=== PATIENT | female | born 1940 | race Caucasian/White ===

== ENCOUNTER 2017-04-28 08:36 | Day surgery (SDC) | payer OTHER ==
[2017-04-27 13:06] VITALS: BMI 21.9
[2017-04-28] MEDS ORDERED: ISOSULFAN BLUE 10 MG/ML VIAL SQ ONE (10:21)
[2017-04-28] MEDS ORDERED: LIDOCAINE HCL 1%, 10 MG/ML (20ML VIAL) ONE (10:30)
[2017-04-28] MEDS ORDERED: LIDOCAINE HCL/PF 2% SDV 5ML VIAL ONE (10:44)
[2017-04-28] MEDS ORDERED: DEXAMETHASONE SOD PHOSPHATE 4 MG/1 ML VIAL ONE (10:44)
[2017-04-28] MEDS ORDERED: PROPOFOL 20 ML ONE ×2 (10:45)
[2017-04-28] MEDS ORDERED: fentaNYL CITRATE 250 MCG/5 ML VIAL ONE (10:45)
[2017-04-28] MEDS ORDERED: SUCCINYLCHOLINE CHLORIDE 200 MG/10 ML VIAL ONE (10:45)
[2017-04-28] MEDS ORDERED: CLINDAMYCIN PHOSPHATE 600 MG/4 ML VIAL IVPB ONE (11:20)
[2017-04-28] MEDS ORDERED: CLINDAMYCIN PHOSPHATE 600 MG/4 ML VIAL ONE (11:28)
[2017-04-28] MEDS ORDERED: HYDROmorphone HCL CARPU-JECT 1 MG/1 ML DISP.SYRIN IVPUSH PRN (11:53)
[2017-04-28] MEDS ORDERED: ONDANSETRON 4 MG/2 ML VIAL IVPUSH PRN (11:53)
[2017-04-28] MEDS ORDERED: oxyCODONE HCL 5 MG TABLET PO PRN ×2 (11:53)
[2017-04-28] MEDS ORDERED: LACTATED RINGERS SOLUTION 1,000 ML IV SCH (12:00)
[2017-04-28] MEDS ORDERED: HYDROmorphone HCL CARPU-JECT 2 MG/1 ML DISP.SYRIN IVPUSH PRN (12:16)
--- NOTE | 2017-04-28 13:25 | HP ---
History & Physical Update - History History: No Change - Physical Physical: No Change - Assessment Assessment: No Change - Plan Plan: No Change
[2017-04-28 13:41] VITALS: TEMP 98.3
[2017-04-28] MEDS ORDERED: oxyCODONE HCL 5 MG TABLET ONE (15:29)
[2017-04-28 16:04] VITALS: BP 143/72; PULSE 89
--- NOTE | 2017-04-29 13:37 | OP ---
DATE OF OPERATION: 04/28/2017 PREOPERATIVE DIAGNOSES: Left breast cancer, right breast atypical lesion. POSTOPERATIVE DIAGNOSES: Left breast cancer, right breast atypical lesion. PROCEDURE: Bilateral ultrasound-guided wire-localized lumpectomy and left sentinel lymph node biopsy. SURGEON: Margaret Becker MD ANESTHESIA: General. ESTIMATED BLOOD LOSS: Minimal. COMPLICATIONS: None. This was a sterile procedure. INDICATION FOR PROCEDURE: Patient presented with a palpable mass in the upper left breast in the 12 o'clock to 1 o'clock location, 1 cm from the nipple. She had a mammogram and an ultrasound. The mammogram noted a suspicious lesion corresponding to the palpable finding in the upper left breast and also noted a spiculated density in the upper outer right breast at the 10 o'clock location, 5 cm from the nipple , confirmed on ultrasound. I did an ultrasound-guided needle biopsy of both these areas. The right breast showed atypical cells, and the left showed an invasive carcinoma. My recommendation was a left lumpectomy, sentinel node biopsy, as well as an excision of the atypical lesion on the right. The procedure was discussed with all of her questions answered. PROCEDURE IN DETAIL: Patient was brought to [facility]. She was first taken to Nuclear Medicine, and technetium labelled sulfur colloid was injected by the Nuclear Medicine Department at the 12 o'clock left breast areolar border. She was then brought to the operating room. After induction of general anesthesia and IV antibiotic, both breasts and axilla were prepped and draped in the usual sterile fashion. Next, 5 mL of isosulfan blue dye were injected into the left subareolar plexus. Breast was then massaged for 5 minutes. I did an intraoperative ultrasound first on the left 12 o'clock to 1 o'clock location 1 cm from the nipple, and the lesion in question was identified. A Kopans wire was used to localize the lesion by me. The breast was then re-prepped and draped. Next, the right breast ultrasound was performed, and again, the lesion in the right 10 o'clock location 5 cm from the nipple was recognized, and area was cleansed with Betadine. A Kopans needle was used to localize this lesion. Both breasts and axilla were prepped and draped in usual sterile fashion. Then, I made a 4-cm incision was made in the left axilla, carried down through the clavipectoral fascia to identify a blue and hot sentinel lymph node. This was sent as sentinel node number 1, blue and hot. Right adjacent to that was another lymph node which felt to be firm, had no blue dye or radioactivity. Therefore, I took this as a left axillary nonsentinel node. On further exploring the axilla, there was second sentinel node found as well that was blue and hot further deeper into the axilla. This was sent as sentinel node number 2, blue and hot. There was no other blue dye radioactivity or pathologically lymph nodes in the left axilla. Therefore, once hemostasis was assured, the left breast lumpectomy was performed. Left breast lumpectomy was performed. A radial incision was made in the 12 o' clock to 1 o'clock location of the left breast, and a wire was used as a guide to get down to the area of interest. This was excised en bloc and tagged with a long stitch lateral, short stitch superior. Grossly, I felt that was close posteriorly and superiorly. Therefore, I took a left breast new posterior margin with a stitch at the old margin and a left breast new superior margin with a stitch at the old margin. These were all sent to Pathology for permanent section. Once hemostasis was assured, there was a wide defect left. Therefore, superior, inferior, medial, and lateral flaps were raised, and the parenchyma was approximated with interrupted 2-0 Vicryl, skin approximated with interrupted 3-0 Vicryl and running 4-0 Monocryl. The axillary incision was also closed in a routine fashion of interrupted 0 Vicryl, running 4-0 Monocryl. A sterile dressing of Steri-Strips and Tegaderm was applied. Next, the instruments and gloves were changed, and the right breast lumpectomy was performed. A curvilinear incision was made in the upper outer right breast, and a wire was used as a guide to get down to the area of interest. This was excised en bloc and tagged with a long stitch lateral, short stitch superior, sent as a right breast lumpectomy for permanent section. Grossly, I felt I could palpate the mass, and I was close inferiorly and posteriorly. Therefore, I took a new inferior margin with a stitch at the old margin, as well as a new posterior margin with a stitch at the old margin. These were all sent to Pathology for permanent section. Hemostasis assured with electrocautery. The parenchyma approximated in interrupted 2-0 Vicryl, skin approximated in interrupted 3-0 Vicryl and running 4-0 Monocryl. A sterile dressing of Steri-Strips and Tegaderm was applied. She tolerated the procedure well, was extubated on the operating room table, taken to recovery in good condition. Liban [id number] MTDD
--- NOTE | 2017-05-06 11:17 | PATH ---
Surgical Pathology Report Patient Name: JOSE MEZA [facility]. Rec. #: [id number] /Age/Gender: 1940 (Age: 76) / F Account: [id number] Location: [facility] SURGICAL Taken: 04/28/2017 Received: 04/28/2017 Reported: 05/06/2017 Physicians: Margaret Becker M.D. Specimen(s) Received A: LEFT AXILLARY SENTINEL LYMPH NODE #1 B: LEFT AXILLARY NON SENTINEL LYMPH NODE C: LEFT AXILLARY SENTINEL LYMPH NODE #2 D: LEFT BREAST LUMPECTOMY E: LEFT BREAST NEW POSTERIOR MARGIN F: LEFT BERAST NEW SUPERIOR MARGIN G: RIGHT LUMPECTOMY H: RIGHT BREAST NEW INFERIOR MARIGN I: RIGHT BREAST NEW POSTERIOR MARGIN Clinical History Breast cancer Final Diagnosis A. AXILLA, LEFT, SENTINEL LYMPH NODE #1, EXCISION: TWO BENIGN LYMPH NODES (0/2). B. AXILLA, LEFT, NON-SENTINEL LYMPH NODE EXCISION: ONE BENIGN LYMPH NODE (0/1). C. AXILLA, LEFT, SENTINEL LYMPH NODE #1, EXCISION: ONE BENIGN LYMPH NODE (0/1). D. BREAST, LEFT, LUMPECTOMY: INVASIVE CARCINOMA WITH SOLID PAPILLARY AND CRIBRIFORM FEATURES, NUCLEAR GRADE 1. INVASIVE CARCINOMA MEASURES 1.9 CM IN GREATEST MICROSCOPIC DIMENSION. DUCTAL CARCINOMA IN SITU (DCIS), CRIBRIFORM TYPE, LOW GRADE, ADMIXED WITH INVASIVE CARCINOMA (MINOR COMPONENT,<25%). NO LYMPHOVASCULAR INVASION IDENTIFIED. SURGICAL MARGINS ARE UNINVOLVED BY CARCINOMA; CARCINOMA IS AT 2 MM FROM THE CLOSEST DEEP MARGIN. SEE SPECIMEN E-F FOR FINAL MARGINS. REMAINDER OF THE BREAST PARENCHYMA SHOWS FIBROCYSTIC TO FIBROADENOMATOID CHANGES INCLUDING STROMAL FIBROSIS, APOCRINE METAPLASIA, MICROCYSTS, USUAL DUCTAL AND FOCAL ATYPICAL DUCTAL HYPERPLASIA, AND COLUMNAR CELL CHANGE. MICROCALCIFICATIONS PRESENT WITHIN INVASIVE CARCINOMA, STROMA, BENIGN DUCTS, AND BLOOD VESSEL REID. PRIOR BIOPSY SITE CHANGES ARE PRESENT. PATHOLOGIC STAGE (PTNM): PT1C PN0. SEE ALSO INVASIVE CARCINOMA CASE SUMMARY BELOW. E. BREAST, LEFT, NEW POSTERIOR MARGIN, EXCISION: BREAST TISSUE WITH FOCAL ATYPICAL DUCTAL HYPERPLASIA, STROMAL FIBROSIS, MICROCYSTS AND MICROCALCIFICATIONS WITHIN BLOOD VESSEL REID. F. BREAST, LEFT, NEW SUPERIOR MARGIN, EXCISION: BENIGN FIBROADIPOSE TISSUE. G. BREAST, RIGHT, LUMPECTOMY: TWO FOCI OF INVASIVE DUCTAL CARCINOMA, WELL DIFFERENTIATED (TUBULE SCORE: 2/3, NUCLEAR GRADE: 2/3, MITOTIC SCORE: 1/3; TOTAL BRYCE SCORE: 5/9). INVASIVE CARCINOMA MEASURES 1.5 AND 0.3 CM IN GREATEST DIMENSION, MICROSCOPICALLY. FOCAL DUCTAL CARCINOMA IN SITU (DCIS), SOLID AND CRIBRIFORM TYPE, INTERMEDIATE GRADE, WITH FOCAL NECROSIS. NO LYMPHOVASCULAR INVASION IDENTIFIED. SURGICAL MARGINS ARE UNINVOLVED BY CARCINOMA; INVASIVE CARCINOMA IS AT 3 MM FROM THE CLOSEST ANTERIOR MARGIN, DCIS IS 2 MM FROM CLOSEST INFERIOR MARGIN. SEE SPECIMEN H-I FOR FINAL MARGINS. REMAINDER OF THE BREAST PARENCHYMA SHOWS FIBROCYSTIC CHANGES INCLUDING STROMAL FIBROSIS, ADENOSIS, MICROCYSTS, USUAL DUCTAL HYPERPLASIA, AND COLUMNAR CELL CHANGE. MICROCALCIFICATIONS WITHIN STROMA AND BENIGN DUCTS. PRIOR BIOPSY SITE CHANGES ARE PRESENT. PATHOLOGIC STAGE (PTNM): PT1C PNX. SEE ALSO INVASIVE CARCINOMA CASE SUMMARY BELOW. H. BREAST, RIGHT, NEW INFERIOR MARGIN, EXCISION: BENIGN BREAST TISSUE WITH FIBROCYSTIC CHANGES INCLUDING STROMAL FIBROSIS, MICROCYSTS, USUAL DUCTAL HYPERPLASIA, APOCRINE METAPLASIA, AND MICROCALCIFICATIONS IN WITHIN BENIGN DUCTS. I. BREAST, RIGHT, NEW POSTERIOR MARGIN, EXCISION: BENIGN FIBROADIPOSE TISSUE. Comments I. Breast Invasive Carcinoma: Surgical Pathology Cancer Case Summary (LEFT BREAST, PART D) Based on AJCC/UICC TNM, 7th edition Procedure _X_ Excision with image-guided localization Lymph Node Sampling _X_ Colbert lymph node(s) _X__ Axillary dissection (partial dissection) Specimen Laterality _X_ Left Tumor Size: Size of Largest Invasive Carcinoma Greatest dimension of largest focus of invasion over 1 mm: 1.9 cm Tumor Focality _X_ Single focus of invasive carcinoma Ductal Carcinoma In Situ (DCIS) _X_ DCIS is present _X_ as a minor component (< 25% of tumor) Histologic Type of Invasive Carcinoma : Invasive carcinoma with cribriform and solid papillary features Histologic Grade: ([place] Histologic Score) Tubular Differentiation _X_ Score cannot be determined Nuclear Pleomorphism _X_ Score 1 Mitotic Rate _X_ Score 1 Overall Grade _X_ Score cannot be determined. Margins _X_ Margins uninvolved by invasive carcinoma Distance from closest margin: 2 mm Specify margin: Deep _X__ Margins uninvolved by DCIS Distance from closest margin: 2 mm, deep margin Lymph-Vascular Invasion _X_ Not identified Lymph Nodes Total number of lymph nodes examined (sentinel and nonsentinel): _4__ Number of sentinel lymph nodes examined: _3__ Number of lymph nodes with macrometastases ( > 2 mm): _0__ Number of lymph nodes with micrometastases (>0.2 mm to 2 mm and/or >200cells):_0__ Number of lymph nodes with isolated tumor cells (=0.2 mm and =200 cells): _0__ Pathologic Staging (pTNM) Primary Tumor (Invasive Carcinoma): pT1c Regional Lymph Nodes (pN): pN0 II. Breast Invasive Carcinoma: Surgical Pathology Cancer Case Summary (RIGHT BREAST, PART G) Breast Invasive Carcinoma: Surgical Pathology Cancer Case Summary Based on AJCC/UICC TNM, 7th edition Procedure _X_ Excision with image-guided localization Specimen Laterality _X_ Right Tumor Size: Size of Largest Invasive Carcinoma Greatest dimension of largest focus of invasion over 1 mm: 1.5 cm Tumor Focality _X__ Multiple foci of invasive carcinoma Number of foci: 2 Sizes of individual foci: 1.5 cm and 0.3 cm Ductal Carcinoma In Situ (DCIS) _X__ DCIS is present _X__ as a major component (>25% of tumor, extensive intraductal component) Histologic Type of Invasive Carcinoma : _X__ Invasive carcinoma of no special type (ductal, not otherwise specified) Histologic Grade: ([place] Histologic Score) Tubular Differentiation _X__ Score 2 Nuclear Pleomorphism _X_ Score 2 Mitotic Rate _X_ Score 1 Overall Grade _X__ Grade 1: scores of 5 (well differentiated) Margins _X_ Margins uninvolved by invasive carcinoma Distance from closest margin: _3__ mm Specify margin: Anterior _x__ Margins uninvolved by DCIS Distance from closest margin: _2__ mm Specify margin: Inferior margin Lymph-Vascular Invasion _X__ Not identified Lymph Nodes Total number of lymph nodes examined (sentinel and nonsentinel): _0__ Pathologic Staging (pTNM) Primary Tumor (Invasive Carcinoma): pT1c Regional Lymph Nodes (pN): pNx Electronically Signed Sahra Cotton M.D. Addendum Reported: 05/12/2017 Addendum Diagnosis Part D (Left Breast) Results of Estrogen Receptor (ER) and Progesterone Receptor (DC) studies performed on block "D1" at [facility] are as follows: ER (clone [id number] mouse monoclonal antibody by [employer]): 99% nuclear staining with strong intensity (Positive). DC (clone16 mouse monoclonal antibody by [employer]): 40% nuclear staining with moderate to strong intensity (Positive). Results of Her2 (IHC) & Ki-67 studies performed on block "D1 " at [place], [place] ([id number]) are as follows: Her2 IHC (EP3 from [employer], formerly known as [id number], using Herring Polymer Refine detection kit): 0 (Negative) Ki-67: up to 10% (Low proliferative index) Part G (Right Breast) Results of Estrogen Receptor (ER) and Progesterone Receptor (DC) studies performed on block "G3" at [facility] are as follows: ER (clone 6F11 mouse monoclonal antibody by [employer]): 99% nuclear staining with strong intensity (Positive). DC (clone16 mouse monoclonal antibody by [employer]): 99% nuclear staining with strong intensity (Positive). Results of Her2 (IHC) & Ki-67 studies performed on block "G3 " at [place], [place] ([id number]) are as follows: Her2 IHC (EP3 from [employer], formerly known as [id number], using Herring Polymer Refine detection kit): 0 (Negative) Ki-67: up to 10% (Low proliferative index) Total formalin fixation time: Approximately 27 hours. Positive and negative controls (internal if applicable) show appropriate results. Formalin fixation and cold ischemic times are within current ASCO/CAP recommendations for ER, DC and Her2 testing. . Sahra Cotton M.D. Gross Description A. Received in formalin labeled "left axillary sentinel lymph node #1," are 2 juan, irregular lymph nodes measuring 0.4 x 0.4 x 0.3 cm and 1.4 x 0.7 x 0.5 cm. The lymph nodes are bisected and entirely submitted in 2 cassettes as follows: 1-2-one whole bisected lymph node each. B. Received in formalin labeled "left axillary non-sentinel lymph node," is a 1.3 x 1.0 x 0.5 cm juan, irregular lymph node with attached fat. The specimen is bisected and entirely submitted in one cassette. C. Received in formalin labeled "left axillary sentinel lymph node #2," is a 1.0 x 0.6 x 0.5 cm juan, irregular lymph node with attached fat. The specimen is bisected and entirely submitted in one cassette. D. Received in formalin, labeled "left breast lumpectomy," is a 7.0 x 6.0 x 3.6 cm. juan-yellow, irregular, portion of fibroadipose tissue with a needle localization wire present. There is a short suture marking the superior aspect and a long suture marking the lateral aspect, per the surgeon. There is no skin or nipple present. The specimen is inked as follows: superior and lateral blue; inferior green; medial yellow; anterior red; deep black. The specimen is serially sectioned from medial to lateral. Sectioning reveals a 1.6 x 1.5 x 1.2 cm juan, indurated mass. The mass is 0.2 cm from the deep margin and focally 0.7 cm from the superior margin. The remaining margins appear clear of the mass. The remaining breast parenchyma displays abundant dense, white, focally firm fibrous tissue. Web Applications Programmer sections are submitted in 7 cassettes as follows: 1-2-one full face section of mass each (each with superior and deep margins); 3-anterior margin; 4-medial margin; 5-lateral margin; 6-inferior margin; 7-uninvolved inside outside sales representative fibrous tissue with deep margin. E. Received in formalin labeled "left breast new posterior margin," is a 4.0 x 3.0 x 0.8 cm irregular portion of fibroadipose tissue with a suture marking the old margin, per the surgeon. The new margin is inked blue and the specimen is serially sectioned. The specimen is entirely submitted in 5 cassettes. F. Received in formalin labeled "left breast new superior margin," is a 3.0 x 2.5 x 0.9 cm irregular portion of fibroadipose tissue with a suture marking the old margin, for the surgeon. The new margin is inked blue and the specimen is serially sectioned. The specimen is entirely submitted in 3 cassettes. G. Received in formalin, labeled "right breast lumpectomy," is a 6.2 x 4.5 x 3.3 cm. juan-yellow, irregular, portion of fibroadipose tissue with a needle localization wire present. There is a short suture marking the superior aspect and a long suture marking the lateral aspect, per the surgeon. There is no skin or nipple present. The specimen is inked as follows: superior and lateral blue; inferior green; medial yellow; anterior red; deep black. The specimen is serially sectioned from lateral to medial. Sectioning reveals a 2.3 x 1.3 x 1.2 cm juan, ill-defined firm focus of fibrous tissue, possibly consistent with a mass. The focus abuts the inferior and deep margins. The focus is 0.4 cm from the superior margin. Web Applications Programmer sections are submitted in 9 cassettes as follows: 1-3-one full face section of possible mass each (each with inferior and deep margins); 4-superior margin; 6-2-qqmiyrqy margin; 7-lateral margin; 8-9-medial margin. H. Received in formalin labeled "right breast new inferior margin," is a 3.5 x 2.5 x 1.1 cm irregular portion of fibroadipose tissue with a suture marking the old margin, per the surgeon. The new margin is inked blue and the specimen is serially sectioned. The specimen is entirely and sequentially submitted in 5 cassettes. I. Received in formalin labeled "right breast new posterior margin," is a 4.5 x 3.0 x 1.4 cm irregular portion of fibroadipose tissue with a suture marking the old margin, per the surgeon. The new margin is inked blue and the specimen is serially sectioned. The specimen is entirely and sequentially submitted in 6 cassettes. 04/29/201704/29/2017
== END 2017-04-28 16:00 | disposition home or self-care (01) ==
LOC: JASU-SURG 08:36
PROVIDERS: ATTEND Surgery
PROC: 0HBV0ZZ Excision of Bilateral Breast, Open Approach (ICD-10-PCS; principal; 2017-04-28 12:00)
DX: C50.412 Malignant neoplasm of upper-outer quadrant of left female breast (principal); C50.411 Malignant neoplasm of upper-outer quadrant of right female breast; D05.91 Unspecified type of carcinoma in situ of right breast; N60.12 Diffuse cystic mastopathy of left breast; N60.32 Fibrosclerosis of left breast; N64.89 Other specified disorders of breast
CPT/HCPCS: 78195-TC; 88307-TC; 88341-TC; 88342-TC; 94760; A9541

== ENCOUNTER 2017-06-04 09:47 | Day surgery (SDC) | payer OTHER ==
[2017-06-02 14:00] VITALS: BMI 25.6
[2017-06-04 10:54] VITALS: TEMP 97.8
[2017-06-04] MEDS ORDERED: CLINDAMYCIN PHOSPHATE 600 MG/4 ML VIAL ONE (14:07)
[2017-06-04] MEDS ORDERED: LIDOCAINE HCL 1%, 10 MG/ML (20ML VIAL) ONE (14:07)
[2017-06-04] MEDS ORDERED: PROPOFOL 20 ML ONE (14:07)
[2017-06-04] MEDS ORDERED: LIDOCAINE HCL/PF 2% SDV 5ML VIAL ONE (14:08)
[2017-06-04] MEDS ORDERED: CLINDAMYCIN PHOSPHATE 600 MG/4 ML VIAL IVPB ONE (14:24)
[2017-06-04] MEDS ORDERED: DEXAMETHASONE SOD PHOSPHATE 4 MG/1 ML VIAL ONE (14:27)
[2017-06-04] MEDS ORDERED: MIDAZOLAM HCL 2 MG/2 ML SINGLE DOSE VIAL ONE (14:33)
[2017-06-04] MEDS ORDERED: ONDANSETRON 4 MG/2 ML VIAL IVPUSH PRN (15:12)
[2017-06-04] MEDS ORDERED: oxyCODONE HCL 5 MG TABLET PO PRN (15:12)
[2017-06-04] MEDS ORDERED: LACTATED RINGERS SOLUTION 1,000 ML IV SCH (15:15)
[2017-06-04 18:14] VITALS: BP 142/76; PULSE 76
--- NOTE | 2017-06-05 08:58 | OP ---
DATE OF OPERATION: 06/04/2017 PREOPERATIVE DIAGNOSIS: Right breast cancer. POSTOPERATIVE DIAGNOSIS: Right breast cancer. PROCEDURE: Right sentinel lymph node biopsy. SURGEON: Margaret Becker MD ANESTHESIA: General. ESTIMATED BLOOD LOSS: Minimal. COMPLICATIONS: None. This is a sterile procedure. INDICATIONS: The patient had a right lumpectomy for atypical biopsy on the ultrasound-guided core biopsy and on lumpectomy that showed to be an invasive carcinoma with adequate margins. My recommendation was to go back and do a sentinel node biopsy. The procedure was discussed with all of the questions answered. PROCEDURE IN DETAIL: The patient was brought to [facility] and taken to Nuclear Medicine where technetium sulfur colloid was injected in the intradome with injection over the lumpectomy scar in the upper outer right breast. The patient was then brought to the operating room. After induction of general anesthesia and antibiotics, the right breast and axilla were sterilely prep and draped in sterile fashion. Then 2.5 mL of Methylene blue dilated with 2.5 mL of injectable saline was injected as an intraparenchymal injection at the right lumpectomy site. The breast was massaged for 5 minutes. The right breast and axilla were then reprepped and redraped, and a 4-cm incision was made in the right axilla, carried down through clavipectoral fascia to identify sentinel node . There seemed to be at least blue lymph nodes together and were minimally hot. This was sent as right axillary sentinel node number 1 hot and blue. There was a second sentinel node as well that was blue but not hot and a third sentinel node that was also blue but not hot. These were all sent to Pathology for permanent section. Hemostasis was assured with electrocautery. There was no other blue dye radioactivity or pathologic appearing lymph nodes in the right axilla. Therefore, once hemostasis was assured, the incisions were closed in a routine fashion with interrupted 3-0 Vicryl, running 4-0 Prolene, and sterile dressing with Tegaderm and 4 x 4s applied. She tolerated the procedure well and was taken to recovery in good condition. Liban [id number]
--- NOTE | 2017-06-09 08:58 | PATH ---
Surgical Pathology Report Patient Name: JOSE MEZA [facility]. Rec. #: [id number] /Age/Gender: 1940 (Age: 76) / F Account: [id number] Location: [facility] SURGICAL Taken: 06/04/2017 Received: 06/07/2017 Reported: 06/09/2017 Physicians: Margaret Becker M.D. Specimen(s) Received A: RIGHT AXILLARY SENTINEL LYMPH NODE B: RIGHT AXILLARY SENTINEL LYMPH NODE C: RIGHT AXILLARY SENTINEL LYMPH NODE Clinical History Right breast cancer Final Diagnosis A. RIGHT AXILLA, SENTINEL NODE #1, EXCISION: FOUR BENIGN LYMPH NODES (0/4). B. RIGHT AXILLA, SENTINEL NODE #2, EXCISION: ONE BENIGN LYMPH NODE (0/1). C. RIGHT AXILLA, SENTINEL NODE #3, EXCISION: ONE BENIGN LYMPH NODE (0/1). Electronically Signed Sahra Cotton M.D. Gross Description A. Received in formalin labeled "right axillary sentinel lymph node #1," is a 3.0 x 2.5 x 1.2 cm portion of yellow, lobulated adipose tissue. There are 4 blue, irregular lymph nodes present within the adipose tissue. The lymph nodes range from 0.4 x 0.3 x 0.2 cm to 1.4 x 0.9 x 0.6 cm. The lymph nodes are entirely submitted in 4 cassettes as follows: 1-3-one whole lymph node each; 4-one whole bisected lymph node. B. Received in formalin labeled "right axillary sentinel lymph node #2," is a 2.1 x 1.7 x 0.6 cm juan-yellow, fatty lymph node. The specimen is bisected and entirely submitted in 2 cassettes. C. Received in formalin labeled "right axillary sentinel lymph node #3," is a 0.3 x 0.2 x 0.2 cm blue, irregular lymph node with attached fat. The specimen is submitted in toto in one cassette. 06/07/201706/07/2017
== END 2017-06-04 17:40 | disposition home or self-care (01) ==
LOC: JASU-SURG 09:47
PROVIDERS: ATTEND Surgery
PROC: 07B50ZX Excision of Right Axillary Lymphatic, Open Approach, Diagnostic (ICD-10-PCS; principal; 2017-06-04 13:00)
DX: C50.911 Malignant neoplasm of unspecified site of right female breast (principal)
CPT/HCPCS: 78195-TC; 94760; A9541